=== PATIENT | male | born 1970 | race Native Hawaiian/Other Pacific Islander ===

== ENCOUNTER → 2017-01-30 | Outpatient (CLI) | payer BC ==
--- NOTE | 2017-01-30 16:50 | EST ---
DATE OF SERVICE: 01/30/2017 AGE: 46Y SEX: M HT: 69 WT: 220 lbs. Protocol Louie: Other: Stage: Dur. of Exercise: 9 minutes *Heart Rate Blood Pressure *Rest: 69 Rest: 136/99 * *Max. Achieved: 162 Maximum BP: 167/64 85% PMHR: 148 100% PMHR: 174 *METS: 11.7 INDICATIONS: Fatigue. MEDICATIONS: Vitamins. Patient was exercised for a total period of 9 minutes. The peak heart rate of 162 was achieved. Blood pressure of 167/64 mmHg was noted. Resting EKG shows normal sinus rhythm with normal [place] interval and QRS duration and normal ST-T waves. ( ) depression suggestive of ischemia is noted. Patient did not complain of any anginal pain during the test. FINAL IMPRESSION: 1. This exercise test is not suggestive of ischemia. 2. Patient's exercise tolerance is excellent. 3. Patient did not complain of any chest pain during the test.
== END | disposition home or self-care (01) ==
LOC: RADNMMAIN 08:51
PROVIDERS: ATTEND Family Medicine
DX: R53.83 Other fatigue (principal)
CPT/HCPCS: 93017

== ENCOUNTER 2017-08-07 22:12 | Emergency (ER) | payer BC ==
[2017-08-07 22:30] VITALS: RESP 16
--- NOTE | 2017-08-07 22:42 | ED ---
Lower Extremity Injury HPI - General Chief Complaint: Extremity Injury, Lower Stated Complaint: rt leg injury(hockey) Time Seen by Provider: 08/07/17 22:19 Source: patient, RN notes reviewed Mode of arrival: EMS Limitations: no limitations - History of Present Illness Initial Comments: This is a 46-year-old male who presents to the emergency department with chief complaint of right knee pain. Patient reports that approximately 2 years ago he had a right knee replacement. He states that prior to arrival he was playing hockey when he felt his right knee "pop." He reports that this injury happened randomly while skating and there is no mechanism of injury. Patient states there is pain with weight-bearing and tenderness at the medial aspect of right knee. He reports his physical therapist friend believes he may have a medial collateral ligament tear. Currently rates his pain as 7/10. Denies fever , chills, chest pain, shortness of breath, abdominal pain, nausea or vomiting, constipation or diarrhea, dysuria or hematuria, numbness or tingling, headache or vision changes. - Related Data Allergies Allergy/AdvReac Type Severity Reaction Status Date / Time No Known Allergies Allergy Verified 08/07/17 22:30 Review of Systems ROS Statement: Those systems with pertinent positive or pertinent negative responses have been documented in the HPI. ROS Other: All systems not noted in ROS Statement are negative. Past Medical History Past Medical History: No Reported History History of Any Multi-Drug Resistant Organisms: None Reported Past Surgical History: Orthopedic Surgery Additional Past Surgical History / Comment(s): R knee replacement Past Psychological History: No Psychological Hx Reported Smoking Status: Never smoker Past Alcohol Use History: None Reported Past Drug Use History: None Reported General Exam - General Exam Comments Initial Comments: General: Awake and alert, well-developed; in no apparent distress. HEENT: Head atraumatic, normocephalic. Pupils are equal, round and reactive to light. Extraocular movements intact. Neck: Supple. Normal ROM. Cardiovascular: Regular rate and rhythm. No murmurs, rubs or gallops. Chest symmetrical. Respiratory: Lungs clear to auscultation bilaterally. No wheezes, rales or rhonchi. Normal respiratory effort with no use of accessory muscles. Musculoskeletal: Right knee has no evidence of swelling, effusion or erythema. There is tenderness on palpation of the medial aspect of right knee. Pain is elicited along medial joint line with valgus stress and Destini's. Sensation is intact. Strength 5/5. Pulses 2+ equal and palpable bilaterally. Skin: [place], warm and dry without rashes or lesions. Right knee replacement scar noted. Neurological: Alert and oriented x3. CN II-XII grossly intact. Speech is fluent and answers are appropriate. No focal neuro deficits. Psychiatric: Normal mood and affect. No overt signs of depression or anxiety noted. Limitations: no limitations Course Vital Signs 08/07/17 22:25 Temperature 98.4 F Pulse Rate 75 Respiratory 16 Rate Blood Pressure 161/90 O2 Sat by Pulse 98 Oximetry Medical Decision Making - Medical Decision Making This is a 46 year old male s/p right knee replacement who presents with complaint of right knee injury/pain. X-ray of right knee revealed no acute abnormalities. Patient refuses knee immobilizer. He states that he has a local orthopedic doctor that he will consult for his knee. Patient states he has ibuprofen and oxycodone at home for pain. No prescription will be provided. Patient is no acute distress at this time is in agreement with plan. All questions were answered. - Radiology Data Radiology results: report reviewed Findings: No fracture nor dislocation. There is right knee prosthesis. Components appear in anatomic position. No acute abnormality of the right knee. Disposition Clinical Impression: Acute internal derangement of knee Disposition: HOME SELF-CARE Condition: Good Instructions: Knee Sprain (ED) Additional Instructions: Please follow up with orthopedics within 1-2 days. Please follow up with primary care provider within 1-2 days. Return to emergency department if symptoms should worsen or any concerns arise. Referrals: Kota Bowman MD [Primary Care Provider] - 1-2 days Time of Disposition: 23:06
--- NOTE | 2017-08-07 22:59 | XR ---
EXAMINATION TYPE: XR knee complete RT DATE OF EXAM: 08/07/2017 COMPARISON: NONE HISTORY: Knee pain TECHNIQUE: 3 views FINDINGS: I see no fracture nor dislocation. There is right knee prosthesis. Components appear in jose j tomic position. IMPRESSION: No acute abnormality of the right knee
[2017-08-07 23:14] VITALS: BP 145/78; PULSE 68; TEMP 97.9
== END 2017-08-07 23:12 | disposition home or self-care (01) ==
LOC: EC 22:12
DX: M23.91 Unspecified internal derangement of right knee (principal); Z96.651 Presence of right artificial knee joint; Y93.22 Activity, ice hockey
CPT/HCPCS: 99283

== ENCOUNTER → 2017-09-11 | Outpatient (CLI) | payer OTHER ==
--- NOTE | 2017-09-11 14:41 | XR ---
EXAMINATION TYPE: XR elbow complete LT DATE OF EXAM: 09/11/2017 CLINICAL HISTORY: pain TECHNIQUE: Frontal, lateral and oblique images of the left elbow are obtained. COMPARISON: None. FINDINGS: There is no acute fracture/dislocation evident of the elbow. No abnormal fat pad signs ar e seen. The overlying soft tissue appears unremarkable. IMPRESSION: There is no acute fracture or dislocation of the elbow. ICD 10 NO FRACTURE, INITIAL EVALUATION
== END | disposition home or self-care (01) ==
LOC: RADXRMAIN 14:07
PROVIDERS: ATTEND Emergency Medicine
DX: S50.02XA Contusion of left elbow, initial encounter (principal)

== ENCOUNTER → 2018-08-28 | Outpatient (CLI) | payer BC ==
--- NOTE | 2018-08-28 17:13 | ECHOF ---
Referral Reason:R03.0 Elevated blood pressure MEASUREMENTS -------- HEIGHT: 177.8 cm WEIGHT: 93.0 kg BP: RVIDd: 2.4 cm (< 3.3) IVSd: 1.2 cm (0.6 - 1.1) LVIDd: 4.7 cm (3.9 - 5.3) LVPWd: 1.3 cm (0.6 - 1.1) IVSs: 1.6 cm LVIDs: 2.6 cm LVPWs: 1.6 cm LAESV Index (A-L): 34.21 ml/m Ao Diam: 3.6 cm (2.0 - 3.7) AV Cusp: 2.0 cm (1.5 - 2.6) LA Diam: 3.5 cm (2.7 - 3.8) MV EXCURSION: 18.547 mm (> 18.000) MV EF SLOPE: 98 mm/s (70 - 150) EPSS: 0.6 cm MV E Magdaleno: 0.81 m/s MV DecT: 303 ms MV A Magdaleno: 0.51 m/s MV E/A Ratio: 1.58 RAP: 5.00 mmHg RVSP: 10.99 mmHg FINDINGS -------- Sinus rhythm. This was a technically good study. The left ventricular size is normal. There is mild concentric left ventricular hypertrophy. Overa ll left ventricular systolic function is normal with, an EF between 55 - 60 %. The right ventricle is normal in size and function. The left atrium is mildly dilated. RA appears enlarged. The aortic valve is trileaflet, and appears structurally normal. No aortic stenosis or regurgitation. The mitral valve leaflets are mildly thickened. There is trace to mild mitral regurgitation. Prom inent papillary muscle visualized. Trace tricuspid regurgitation present. Right ventricular systolic pressure is normal at < 35 mmHg. There is no evidence of pulmonary hypertension. Trace/mild (physiologic) pulmonic regurgitation. The aortic root size is normal. Normal inferior vena cava with normal inspiratory collapse consistent with estimated right atrial pre ssure of 5 mmHg. There is no pericardial effusion. CONCLUSIONS -------- 1. Sinus rhythm. 2. This was a technically good study. 3. The left ventricular size is normal. 4. There is mild concentric left ventricular hypertrophy. 5. Overall left ventricular systolic function is normal with, an EF between 55 - 60 %. 6. The left atrium is mildly dilated. 7. RA appears enlarged. 8. The aortic valve is trileaflet, and appears structurally normal. No aortic stenosis or regurgitati on. 9. The mitral valve leaflets are mildly thickened. 10. There is trace to mild mitral regurgitation. 11. Prominent papillary muscle visualized. 12. Trace tricuspid regurgitation present. 13. Right ventricular systolic pressure is normal at < 35 mmHg. 14. There is no evidence of pulmonary hypertension. 15. Trace/mild (physiologic) pulmonic regurgitation. 16. The aortic root size is normal. 17. There is no pericardial effusion. MILITARY COOK: Zackary Dixon RDCS
== END | disposition home or self-care (01) ==
LOC: RADECHMAIN 15:28
PROVIDERS: ATTEND Nurse Practitioner Adult Health
DX: I51.7 Cardiomegaly (principal); I34.0 Nonrheumatic mitral (valve) insufficiency; I37.1 Nonrheumatic pulmonary valve insufficiency
CPT/HCPCS: 93306

== ENCOUNTER → 2019-07-18 | Outpatient (CLI) | payer OTHER ==
--- NOTE | 2019-07-18 15:48 | XR ---
EXAMINATION TYPE: XR shoulder complete LT DATE OF EXAM: 07/18/2019 COMPARISON: NONE HISTORY: Pain TECHNIQUE: Shoulder examined in 3 views FINDINGS: The humeral head articulates with the glenoid. The acromio-clavicular junction is normal. No acute fractures or dislocations are evident. A follow up study can be performed 7-10 days from acute trauma for continued pain. IMPRESSION: 1. Normal 3 view left Shoulder
== END | disposition home or self-care (01) ==
LOC: RADXRMAIN 15:22
PROVIDERS: ATTEND Emergency Medicine
DX: S46.812A Strain of other muscles, fascia and tendons at shoulder and upper arm level, left arm, initial encounter (principal)

== ENCOUNTER 2021-04-01 16:56 | Emergency (ER) | payer BC, OTHER ==
[2021-04-01 17:04] VITALS: TEMP 98
[2021-04-01] MEDS ORDERED: FAMOTIDINE 20 MG/2 ML VIAL IV STA (17:25)
[2021-04-01] MEDS ORDERED: SODIUM CHLORIDE 0.9% 1,000 ML IV STA (17:25)
[2021-04-01] MEDS ORDERED: KETOROLAC 15 MG/ML 1 ML VIAL IVP STA (17:25)
[2021-04-01] MEDS ORDERED: ONDANSETRON 4 MG/2 ML VIAL IVP STA (17:25)
--- NOTE | 2021-04-01 17:27 | ED ---
Back Pain HPI - General Chief Complaint: Back Pain/Injury Stated Complaint: Lower back pain, nausea Time Seen by Provider: 04/01/21 17:13 Source: patient Limitations: no limitations - History of Present Illness Initial Comments: 50-year-old male presents to the emergency department with a chief complaint of back pain. States this occurred around noon today and it was a sudden onset in the right flank region with some radiation towards the abdomen and groin region. Reports nausea and multiple episodes of nonbilious and nonbloody vomiting. States the pain comes and goes, sharp in nature in 08/01 whenever he is on. Denies any obstructive or infectious urinary symptoms. Denies any hematuria, hematochezia or melena. No history of kidney stones. Abdominal Surgical hist ory of hernia. - Related Data Previous Rx's Medication Instructions Recorded Ketorolac [Toradol] 10 mg PO Q8HR #15 tab 04/01/21 Ondansetron Odt [Zofran Odt] 4 mg PO Q8HR PRN #10 tab 04/01/21 Tamsulosin [Flomax] 0.4 mg PO DAILY #7 cap 04/01/21 Allergies Allergy/AdvReac Type Severity Reaction Status Date / Time No Known Allergies Allergy Verified 04/01/21 17:04 Review of Systems ROS Statement: Those systems with pertinent positive or pertinent negative responses have been documented in the HPI. ROS Other: All systems not noted in ROS Statement are negative. Past Medical History Past Medical History: No Reported History History of Any Multi-Drug Resistant Organisms: None Reported Past Surgical History: Orthopedic Surgery Additional Past Surgical History / Comment(s): R knee replacement, hip, elbow, Hernia Past Psychological History: No Psychological Hx Reported Smoking Status: Never smoker Past Alcohol Use History: Occasional Past Drug Use History: None Reported General Exam Limitations: no limitations General appearance: alert, in no apparent distress Head exam: Present: atraumatic, normocephalic, normal inspection Eye exam: Present: normal appearance, PERRL, EOMI Pupils: Present: normal accommodation ENT exam: Present: normal exam, normal oropharynx, mucous membranes moist Neck exam: Present: normal inspection, full ROM. Absent: tenderness, lymphadenopathy Respiratory exam: Present: normal lung sounds bilaterally. Absent: respiratory distress Cardiovascular Exam: Present: regular rate, normal rhythm, normal heart sounds. Absent: systolic murmur GI/Abdominal exam: Present: soft, tenderness (Right flank). Absent: distended, guarding, rebound, rigid Extremities exam: Present: normal inspection, full ROM, normal capillary refill. Absent: tenderness, pedal edema, joint swelling Back exam: Present: normal inspection, full ROM, tenderness, CVA tenderness (R). Absent: CVA tenderness (L) Neurological exam: Present: alert, oriented X3, normal gait Psychiatric exam: Present: normal affect, normal mood Skin exam: Present: warm, dry, intact, normal color Course Vital Signs 04/01/21 17:01 Temperature 98 F Pulse Rate 69 Respiratory 20 Rate Blood Pressure 135/88 O2 Sat by Pulse 99 Oximetry Medical Decision Making - Medical Decision Making 50-year-old male presents to emergency Department with a chief complaint of abdominal pain. On physical examination, right CVA tenderness. Patient was given IV fluids, antiemetics and Toradol for analgesia. A reevaluation, he reports improvement of symptoms. CBC CMP unremarkable. UA shows mild microscopic hematuria. CT of the abdomen and pelvis without contrast reveals mild right-sided hydronephrosis with a 2 mm stone at the UVJ. Patient will be discharged with Zofran Flomax and Toradol for pain. Advised to follow-up with urology. Return parameters were discussed with patient was understanding and agreeable. Case discussed with Dr. Noble - Lab Data Result diagrams: 04/01/21 17:25 04/01/21 17:25 Lab Results 04/01/21 04/01/21 04/01/21 Range/Units 17:25 17:25 17:25 WBC 9.8 (3.8-10.6) k/uL RBC 4.87 (4.30-5.90) m/uL Hgb 15.1 (13.0-17.5) gm/dL Hct 46.6 (39.0-53.0) % MCV 95.8 (80.0-100.0) fL MCH 31.0 (25.0-35.0) pg MCHC 32.4 (31.0-37.0) g/dL RDW 14.7 (11.5-15.5) % Plt Count 220 (150-450) k/uL MPV 6.9 Neutrophils % 88 % Lymphocytes % 7 % Monocytes % 4 % Eosinophils % 0 % Basophils % 0 % Neutrophils # 8.6 H (1.3-7.7) k/uL Lymphocytes # 0.7 L (1.0-4.8) k/uL Monocytes # 0.3 (0-1.0) k/uL Eosinophils # 0.0 (0-0.7) k/uL Basophils # 0.0 (0-0.2) k/uL Sodium 137 (137-145) mmol/L Potassium 4.3 (3.5-5.1) mmol/L Chloride 105 (98-107) mmol/L Carbon Dioxide 25 (22-30) mmol/L Anion Gap 7 mmol/L BUN 17 (9-20) mg/dL Creatinine 1.11 (0.66-1.25) mg/dL Est GFR (CKD-EPI)AfAm 89 (>60 ml/min/1.73 sqM) Est GFR (CKD-EPI)NonAf 77 (>60 ml/min/1.73 sqM) Glucose 96 (74-99) mg/dL Calcium 9.0 (8.4-10.2) mg/dL Total Bilirubin 1.1 (0.2-1.3) mg/dL AST 36 (17-59) U/L ALT 22 (4-49) U/L Alkaline Phosphatase 76 (38-126) U/L Total Protein 6.4 (6.3-8.2) g/dL Albumin 4.1 (3.5-5.0) g/dL Lipase 203 (23-300) U/L Urine Color Yellow Urine Appearance Cloudy (Clear) Urine pH 7.5 (5.0-8.0) Ur Specific [place] 1.021 (1.001-1.035) Urine Protein Negative (Negative) Urine Glucose (UA) Negative (Negative) Urine Ketones 3+ H (Negative) Urine Blood Negative (Negative) Urine Nitrite Negative (Negative) Urine Bilirubin Negative (Negative) Urine Urobilinogen <2.0 (<2.0) mg/dL Ur Leukocyte Esterase Negative (Negative) Urine RBC 7 H (0-5) /hpf Urine WBC 2 (0-5) /hpf Disposition Clinical Impression: Nephrolithiasis, Hydronephrosis Disposition: HOME SELF-CARE Condition: Stable Instructions (If sedation given, give patient instructions): Kidney Stones (ED) Additional Instructions: Please return to the Emergency Department if symptoms worsen or any other concerns. Take prescribed medication as directed. Drink plenty of fluids. Follow-up with urology. Is patient prescribed a controlled substance at d/c from ED?: No Referrals: Kota Bowman MD [Primary Care Provider] - 1-2 days Chaz Ramirez MD [STAFF PHYSICIAN] - 1-2 days
[2021-04-01 17:54] LABS: Basophils % (A) 0 %; Eosinophils % (A) 0 %; HCT 46.6 % (39.0-53.0); HGB 15.1 gm/dL (13.0-17.5); Lymphocytes # (A) 0.7 k/uL (1.0-4.8); Lymphocytes % (A) 7 %; MCHC 32.4 g/dL (31.0-37.0); MCV 95.8 fL (80.0-100.0); Mean Platelet Volume 6.9; Monocytes # (A) 0.3 k/uL (0-1.0); Monocytes % (A) 4 %; Neutrophils # (A) 8.6 k/uL (1.3-7.7); Neutrophils % (A) 88 %; Platelet Count 220 k/uL (150-450); RBC 4.87 m/uL (4.30-5.90); RDW 14.7 % (11.5-15.5); WBC 9.8 k/uL (3.8-10.6)
[2021-04-01 17:56] LABS: Appearance,Urine Cloudy (Clear); Bilirubin,Urine Negative (Negative); Blood,Urine Negative (Negative); Color,Urine Yellow; Glucose,Urine (UA) Negative (Negative); Ketones,Urine 3+ (Negative); Leukocyte Esterase,Urine Negative (Negative); Nitrite,Urine Negative (Negative); PH, Urine 7.5 (5.0-8.0); Protein,Urine Negative (Negative); RBC,Urine 7 /hpf (0-5); Specific Gravity,Urine 1.021 (1.001-1.035); Urobilinogen,Urine <2.0 mg/dL (<2.0); WBC,Urine 2 /hpf (0-5)
[2021-04-01 18:02] LABS: Albumin 4.1 g/dL (3.5-5.0); Potassium 4.3 mmol/L (3.5-5.1); Total Bilirubin 1.1 mg/dL (0.2-1.3); Total Protein 6.4 g/dL (6.3-8.2)
--- NOTE | 2021-04-01 18:30 | CT ---
EXAMINATION TYPE: CT abdomen pelvis wo con DATE OF EXAM: 04/01/2021 COMPARISON: HISTORY: Right flank pain radiating to groin. CT DLP: 602.3 mGycm Automated exposure control for dose reduction was used. TECHNIQUE: Helical acquisition of images was performed from the lung bases through the pelvis. FINDINGS: Within limitations of noncontrast CT the following observations are made: LUNG BASES: No significant abnormality is appreciated. LIVER/GB: No significant abnormality is appreciated. PANCREAS: No significant abnormality is seen. SPLEEN: No significant abnormality is seen. ADRENALS: No significant abnormality is seen. KIDNEYS: There is moderate right-sided hydronephrosis and hydroureter down to the right ureterovesica l junction where there is a 2 mm distal ureteral calcification. Left kidney demonstrates two 3 mm nonobstructing calcifications, one within the midpole and one in the lower pole FREE AIR: No free air is visualized RETROPERITONEAL ADENOPATHY: None visualized REPRODUCTIVE ORGANS: No significant abnormality is seen URINARY BLADDER: No significant abnormality is seen. PELVIC ADENOPATHY: None visualized. OSSEOUS STRUCTURES: No significant abnormality is seen. BOWEL: No significant abnormality is seen. Appendix is unremarkable. IMPRESSION: POSITIVE FOR RIGHT OBSTRUCTIVE UROPATHY DISCUSSED.
[2021-04-01] MEDS ORDERED: ONDANSETRON 4 MG ODT STARTER PACK 2 TAB BTL PO STA (18:49)
[2021-04-01] MEDS ORDERED: ACET/COD 300 MG/30 MG STARTER PACK 6 TAB BTL PO STA (19:03)
[2021-04-01 19:07] VITALS: BP 139/81; PULSE 75; RESP 16
== END 2021-04-01 19:08 | disposition home or self-care (01) ==
LOC: EC 16:56
DX: N13.2 Hydronephrosis with renal and ureteral calculous obstruction (principal)
CPT/HCPCS: 36415; 80053; 83690; 85025; 81001; 74176; 99284; 96374; 96375 ×2; 96361 ×2; J2405; J1885; S0119